=== PATIENT | male | born 1980 ===

== ENCOUNTER 2017-02-01 14:01 | Observation (INO) | payer OTHER ==
[2017-02-01 14:01] VITALS: BMI 22.8
--- NOTE | 2017-02-01 15:06 | ED PDOC ---
HPI: Psych/Substance Abuse Time Seen by Provider: 02/01/17 14:10 Chief Complaint (Nursing): Substance Abuse Chief Complaint (Provider): Substance Abuse History Per: Patient History/Exam Limitations: intoxication Onset/Duration Of Symptoms: Hrs (Since earlier today) Current Symptoms Are (Timing): Still Present Additional Complaint(s): Leonides is a 36 y/o male with a past medical history of polysubstance abuse who was brought to the emergency department by EMS and police after being found incoherent in the street today. Patient admits to using PCP and other drugs in the past, and may have taken drugs today. Last alcoholic beverage was yesterday. Patient denies having any medical complaints. . pt denies suicidal or homicidal ideation PMD: Unknown Past Medical History Reviewed: Historical Data, Nursing Documentation, Vital Signs - Medical History PMH: Asthma, Bipolar Disorder, Depression, Hypercholesterolemia (pt says he no longer takes meds for this), Schizophrenia Denies: Diabetes, Hepatitis, HIV, HTN, Seizures, Sexually Transmitted Disease Other PMH: Polysubstance abuse - Surgical History Other surgeries: Left hand surgery - Family History Family History: States: Unknown Family Hx - Social History Current smoker - smoking cessation education provided: Yes (3 cigarettes per day ) Alcohol: Occasional Drugs: Cannabis, Other (PCP) - Home Medications Home Medications: Ambulatory Orders Medication Instructions Recorded Albuterol HFA [Ventolin HFA 90 2 puff IH Q4 PRN #1 unit 06/29/16 mcg/actuation (8 g)] - Allergies Allergies/Adverse Reactions: Allergies Allergy/AdvReac Type Severity Reaction Status Date / Time No Known Allergies Allergy Verified 02/02/17 11:07 Review of Systems Review Of Systems: ROS cannot be obtained secondary to pt's inabilty to answer questions. Constitutional: Negative for: Other (all medical complaints) Neurological: Positive for: Confusion Physical Exam - Reviewed Nursing Documentation Reviewed: Yes Vital Signs Reviewed: Yes - Physical Exam Appears: Positive for: Non-toxic, No Acute Distress Head Exam: Positive for: ATRAUMATIC, NORMAL INSPECTION, NORMOCEPHALIC Skin: Positive for: Normal Color, Warm, Dry Eye Exam: Positive for: EOMI, Normal appearance, PERRL Neck: Positive for: Normal, Painless ROM, Supple Cardiovascular/Chest: Positive for: Regular Rate, Rhythm. Negative for: JVD, Murmur Respiratory: Positive for: Normal Breath Sounds. Negative for: Accessory Muscle Use, Respiratory Distress Gastrointestinal/Abdominal: Positive for: Normal Exam, Soft. Negative for: Tenderness Extremity: Positive for: Normal ROM. Negative for: Deformity Neurologic/Psych: Positive for: Alert, Oriented - Laboratory Results Result Diagrams: 02/01/17 14:40 02/01/17 14:40 Medical Decision Making Medical Decision Making: Time: 14:46 Initial Impression: rule out drug abuse, polysubstance abuse Initial Plan: --EKG --Urine drug screen --Alcohol serum --CBC --CMP --Salicylate --Acetaminophen --Admit to ED-Observation for substance abuse, goal to reach clinical sobriety Scribe Attestation: Documented by Tressa Gore, acting as a scribe for Barrie Amado MD Provider Scribe Attestation: All medical record entries made by the Scribe were at my direction and personally dictated by me. I have reviewed the chart and agree that the record accurately reflects my personal performance of the history, physical exam, medical decision making, and the department course for this patient. I have also personally directed, reviewed, and agree with the discharge instructions and disposition. ED OBSERVATION Date of observation admission: 02/01/17 Time of observation admission: 14:46 - Observation admission statement Patient is being placed in observation because:: Intoxication - Goals of Observation Goals of observation are:: To reach clinical sobriety - Progress Note Progress Note: 02/01/17 Time: 14:46 --Patient is resting comfortably. Vital signs stable. --Pending clinical sobriety Time: 15:13 --Requested 1:1 observation Time: 16:15 --Patient is resting comfortably. Vital signs stable. pt wants to go home, feels better 02/03/17 08:22 Disposition - Clinical Impression Clinical Impression: Polysubstance abuse - Patient ED Disposition Is Patient to be Admitted: No Counseled Patient/Family Regarding: Studies Performed, Diagnosis, Need For Followup - Disposition Disposition: Routine/Home Disposition Time: 18:50 Condition: IMPROVED
[2017-02-01 15:12] LABS: BASO % 0.8 % (0.0-2.0); EOS % 0.8 % (0.0-4.0); HEMOGLOBIN 13.9 g/dL (12.0-18.0); LYMPH % 34.7 % (20.0-40.0); MEAN CELL VOLUME 88.6 fl (80.0-94.0); MEAN CORPUSCULAR HEMOGLOBIN 30.4 pg (27.0-31.0); MEAN CORPUSCULAR HGB CONC 34.3 g/dL (33.0-37.0); MEAN PLATELET VOLUME 8.1 fl (7.2-11.7); MONO % 5.5 % (0.0-10.0); NEUT % 58.2 % (50.0-75.0); RBC 4.56 Mil/uL (4.40-5.90); WHITE BLOOD COUNT 7.1 K/uL (4.8-10.8)
[2017-02-01 15:13] LABS: BASO # 0.1 K/uL (0.0-0.2); EOS # 0.1 K/uL (0.0-0.7); LYMPH # 2.5 K/uL (1.0-4.3); MONO # 0.4 K/uL (0.0-0.8); NEUT # 4.1 K/uL (1.8-7.0); NRBC % 0.1 % (0.0-0.0)
[2017-02-01 15:22] LABS: SALICYLATE < 1.0 mg/dl
[2017-02-01 15:23] LABS: ALB/GLOB RATIO 1.4 (1.0-2.1); ALBUMIN 4.6 g/dL (3.5-5.0); ALT/SGPT 29 U/L (21-72); AST/SGOT 29 U/L (17-59); BLOOD UREA NITROGEN 15 mg/dl (9-20); CALCIUM 9.5 mg/dL (8.4-10.2); GFR AFRICAN-AMERICAN > 60; GFR NON-AFRICAN AMERICAN > 60
[2017-02-01 15:24] LABS: ACETAMINOPHEN < 10.0 ug/ml (10.0-30.0)
[2017-02-01 17:31] LABS: BARBITURATES, UR NEGATIVE (NEGATIVE); BENZODIAZEPINES, UR NEGATIVE (NEGATIVE); OPIATES, UR NEGATIVE (NEGATIVE); PHENCYCLIDINE, UR POSITIVE (NEGATIVE)
[2017-02-01 17:47] VITALS: BP 127/64; PULSE 72; RESP 18; TEMP 98.8; O2SAT 98
--- NOTE | 2017-02-03 00:06 | CARD ---
APPROVED REPORT EKG Measurement Heart [id number] <Conclusion> Normal sinus rhythm Normal ECG
== END 2017-02-01 18:09 | disposition home or self-care (01) ==
LOC: H.ER 14:01 → H.EROBSV 14:30
PROVIDERS: ADMIT Emergency Medicine; ATTEND Emergency Medicine
DX: F19.10 Other psychoactive substance abuse, uncomplicated (principal); E78.00 Pure hypercholesterolemia, unspecified; F31.9 Bipolar disorder, unspecified; J45.909 Unspecified asthma, uncomplicated; F32.9 Major depressive disorder, single episode, unspecified; F17.210 Nicotine dependence, cigarettes, uncomplicated
CPT/HCPCS: 80053; 85025; 93005; 99283; G0378; G0480

== ENCOUNTER 2017-02-01 19:03 | Emergency (ER) | payer OTHER ==
[2017-02-01 19:14] VITALS: TEMP 98
--- NOTE | 2017-02-01 19:58 | ED PDOC ---
HPI: Psych/Substance Abuse Time Seen by Provider: 02/01/17 19:12 Chief Complaint (Nursing): Substance Abuse Chief Complaint (Provider): Possible substance abuse ED Caveat: Intoxicated, Uncooperative History Per: EMS History/Exam Limitations: intoxication Additional Complaint(s): Leonides Smart is a 36 y/o male presenting to the ER on 02/01/2017 via [employer] for possible substance abuse. History obtained per EMS. Per EMS, patient was evaluated and discharged in this ED earlier today, but was brought back after exhibiting bizarre and aggressive behavior in the park. Upon arrival to the ED, patient was noted to have dilated pupils and was placed in four point restraints for the patient's and staff's safety. Patient, while in his room, became more aggravated as he began to yell and shout. Rest of HPI/ROS is limited due to the patient's clinical condition. Past Medical History Reviewed: Historical Data, Nursing Documentation, Vital Signs Vital Signs: Last Vital Signs Temp 98 F 02/01/17 19:11 Pulse 90 02/01/17 19:11 Resp 18 02/01/17 19:11 BP 125/80 02/01/17 19:11 Pulse Ox 97 02/01/17 19:11 - Medical History PMH: Asthma, Bipolar Disorder, Depression, Hypercholesterolemia (pt says he no longer takes meds for this), Schizophrenia Denies: Diabetes, Hepatitis, HIV, HTN, Seizures, Sexually Transmitted Disease - Family History Family History: States: Unknown Family Hx - Social History Current smoker - smoking cessation education provided: Yes Alcohol: Occasional Drugs: Cannabis - Home Medications Home Medications: Ambulatory Orders Medication Instructions Recorded Albuterol HFA [Ventolin HFA 90 2 puff IH Q4 PRN #1 unit 06/29/16 mcg/actuation (8 g)] - Allergies Allergies/Adverse Reactions: Allergies Allergy/AdvReac Type Severity Reaction Status Date / Time No Known Allergies Allergy Verified 06/13/16 16:25 Review of Systems Review Of Systems: ROS cannot be obtained secondary to pt's inabilty to answer questions. Physical Exam - Reviewed Nursing Documentation Reviewed: Yes Vital Signs Reviewed: Yes - Physical Exam Appears: Positive for: Non-toxic, No Acute Distress Head Exam: Positive for: ATRAUMATIC, NORMOCEPHALIC Skin: Positive for: Normal Color. Negative for: Rash Eye Exam: Positive for: Normal appearance Neck: Positive for: Normal, Painless ROM, Supple Cardiovascular/Chest: Positive for: Regular Rate, Rhythm. Negative for: Murmur Respiratory: Positive for: Normal Breath Sounds. Negative for: Respiratory Distress Gastrointestinal/Abdominal: Positive for: Normal Exam, Soft. Negative for: Tenderness Extremity: Positive for: Normal ROM. Negative for: Deformity, Swelling Neurologic/Psych: Positive for: Alert, Oriented. Negative for: Motor/Sensory Deficits - ECG O2 Sat by Pulse Oximetry: 97 Medical Decision Making Medical Decision Makin:12 Initial Impression- Substance abuse Pt was sedated with 2 mg Ativan for most probable drug induced psychosis. Pt is suspected to be under the influence of PCP. Pt will be placed on 1:1 observation. See ED OBS for further updates. PT stable with stable gait normal speech pattern. Pt d/c home Documented by Marco Antonio Puente, acting as a scribe for Noemi Tapia PA-C All medical record entries made by the Scribe were at my direction and personally dictated by me. I have reviewed the chart and agree that the record accurately reflects my personal performance of the history, physical exam, medical decision making, and the department course for this patient. I have also personally directed, reviewed, and agree with the discharge instructions and disposition. ED OBSERVATION Discharge: Yes Date of observation admission: 02/01/17 Time of observation admission: 19:13 - Observation admission statement Patient is being placed in observation because:: Pt is clinically intoxicated - Goals of Observation Goals of observation are:: Clinical sobriety, re-evaluation, and final disposition. - Progress Note Progress Note: 02/01/17 21:06 pt stable, more alert and oriented. 02/01/17 21:29 pt removed from restraints 02/01/17 22:04 pt stable for d.c at this time. Disposition - Clinical Impression Clinical Impression: Substance abuse, PCP (phencyclidine) abuse - Patient ED Disposition Is Patient to be Admitted: No Counseled Patient/Family Regarding: Diagnosis, Need For Followup - Disposition Disposition: Routine/Home Disposition Time: 22:05 Condition: STABLE Instructions: Polysubstance Abuse (ED)
[2017-02-01 21:26] VITALS: RESP 18
[2017-02-01 22:17] VITALS: BP 122/81; PULSE 87; O2SAT 100
--- NOTE | 2017-02-02 19:03 | CARD ---
APPROVED REPORT EKG Measurement Heart [id number] <Conclusion> Normal sinus rhythm Normal ECG
== END 2017-02-01 22:17 | disposition home or self-care (01) ==
LOC: H.ER 19:03
DX: F16.10 Hallucinogen abuse, uncomplicated (principal); F10.10 Alcohol abuse, uncomplicated

== ENCOUNTER 2017-02-02 10:40 | Emergency (ER) | payer OTHER ==
--- NOTE | 2017-02-02 10:55 | ED PDOC ---
HPI: Psych/Substance Abuse Time Seen by Provider: 02/02/17 10:46 History Per: Patient Additional Complaint(s): 36 year old male presents to ED with possible substance abuse and a past medical history of substance abuse, schizophrenia, bipolar disorder, and depression. Patient forced his way through the ambulance bay door while breaking the window before running into the triage area appearing very confused. Patient did not answer any questions, and security restrained him in the trauma room. Patient was then given 4 point restraints and 2 & 5 for relief of acute agitation. Patient admits to PCP use and is unable to answer any other questions. PCP: Unable to obtain Past Medical History Vital Signs: Last Vital Signs Temp 98.8 F 02/02/17 10:42 Pulse 89 02/02/17 10:42 Resp 18 02/02/17 10:42 BP 133/81 02/02/17 10:42 Pulse Ox 95 02/02/17 10:42 - Medical History PMH: Asthma, Bipolar Disorder, Depression, Hypercholesterolemia (pt says he no longer takes meds for this), Schizophrenia Denies: Diabetes, Hepatitis, HIV, HTN, Seizures, Sexually Transmitted Disease - Family History Family History: States: Unknown Family Hx - Home Medications Home Medications: Ambulatory Orders Medication Instructions Recorded Albuterol HFA [Ventolin HFA 90 2 puff IH Q4 PRN #1 unit 06/29/16 mcg/actuation (8 g)] - Allergies Allergies/Adverse Reactions: Allergies Allergy/AdvReac Type Severity Reaction Status Date / Time No Known Allergies Allergy Verified 02/02/17 11:07 - Laboratory Results Result Diagrams: 02/02/17 11:29 02/02/17 11:29 - ECG O2 Sat by Pulse Oximetry: 95 Medical Decision Making Medical Decision Making: Pt attempting to leave bed and unable to understand risks of fall or potential for traumatic brain injury. Medicated to relieve drug-induced psychosis.
[2017-02-02 11:43] LABS: BASO # 0.1 K/uL (0.0-0.2); BASO % 0.5 % (0.0-2.0); EOS % 0.2 % (0.0-4.0); LYMPH # 3.4 K/uL (1.0-4.3); LYMPH % 28.3 % (20.0-40.0); MEAN CELL VOLUME 88.7 fl (80.0-94.0); MEAN CORPUSCULAR HEMOGLOBIN 29.3 pg (27.0-31.0); MEAN CORPUSCULAR HGB CONC 33.1 g/dL (33.0-37.0); MONO # 0.8 K/uL (0.0-0.8); MONO % 6.6 % (0.0-10.0); NEUT # 7.7 K/uL (1.8-7.0); NEUT % 64.4 % (50.0-75.0); NRBC % 0.1 % (0.0-0.0); RBC 4.77 Mil/uL (4.40-5.90); RED CELL DISTRIBUTION WIDTH 13.9 % (11.5-14.5); WHITE BLOOD COUNT 11.9 K/uL (4.8-10.8)
[2017-02-02 11:52] LABS: ALB/GLOB RATIO 1.4 (1.0-2.1); ALBUMIN 5.1 g/dL (3.5-5.0); ALT/SGPT 42 U/L (21-72); AST/SGOT 66 U/L (17-59); BLOOD UREA NITROGEN 15 mg/dl (9-20); CALCIUM 9.4 mg/dL (8.4-10.2); GFR AFRICAN-AMERICAN > 60; GFR NON-AFRICAN AMERICAN > 60
[2017-02-02] MEDS ORDERED: Sodium Chloride 0.9% 1,000 ML IV STA ×2 (12:53)
[2017-02-02 14:16] VITALS: BP 119/71; PULSE 84; RESP 16; TEMP 98.8; O2SAT 99
== END 2017-02-02 14:16 | disposition home or self-care (01) ==
LOC: H.ER 10:40
DX: F19.10 Other psychoactive substance abuse, uncomplicated (principal); F19.951 Other psychoactive substance use, unspecified with psychoactive substance-induced psychotic disorder with hallucinations

== ENCOUNTER 2017-02-03 13:55 | Emergency (ER) | payer OTHER ==
[2017-02-03 14:02] VITALS: TEMP 101
--- NOTE | 2017-02-03 14:12 | ED PDOC ---
HPI: Psych/Substance Abuse Time Seen by Provider: 02/03/17 14:11 Chief Complaint (Nursing): Substance Abuse Chief Complaint (Provider): Substance abuse History Per: Patient Additional Complaint(s): Leonides Smart is a 36 y/o male presenting to the ER on 02/03/2017 via [employer] for possible substance abuse. History obtained per EMS. Per EMS, patient was evaluated and discharged from the ED 2 x yesterday for the same. Presents again after exhibiting bizarre and aggressive behavior in the park. Upon arrival to the ED, patient was noted to have dilated pupils and was placed in four point restraints for the patient's and staff's safety. Patient, while in his room, became more aggravated as he began to yell and shout. Rest of HPI/ROS is limited due to the patient's clinical condition. Pt has a history of PCP PCP: Unable to obtain Past Medical History Reviewed: Historical Data, Nursing Documentation, Vital Signs Vital Signs: Last Vital Signs Temp 101.0 F H 02/03/17 14:00 Pulse 118 H 02/03/17 14:00 Resp 16 02/03/17 14:00 BP 135/88 02/03/17 14:00 Pulse Ox 99 02/03/17 14:00 - Medical History PMH: Asthma, Bipolar Disorder, Depression, Hypercholesterolemia (pt says he no longer takes meds for this), Schizophrenia Denies: Diabetes, Hepatitis, HIV, HTN, Seizures, Sexually Transmitted Disease - Surgical History Surgical History: No Surg Hx - Family History Family History: States: Unknown Family Hx - Living Arrangements Living Arrangements: With Family - Social History Current smoker - smoking cessation education provided: No - Home Medications Home Medications: Ambulatory Orders Medication Instructions Recorded Albuterol HFA [Ventolin HFA 90 2 puff IH Q4 PRN #1 unit 06/29/16 mcg/actuation (8 g)] - Allergies Allergies/Adverse Reactions: Allergies Allergy/AdvReac Type Severity Reaction Status Date / Time No Known Allergies Allergy Verified 02/03/17 14:00 Review of Systems Review Of Systems: ROS cannot be obtained secondary to pt's inabilty to answer questions. Physical Exam - Reviewed Nursing Documentation Reviewed: Yes Vital Signs Reviewed: Yes - Physical Exam Appears: Positive for: Non-toxic, No Acute Distress Head Exam: Positive for: ATRAUMATIC, NORMAL INSPECTION, NORMOCEPHALIC Skin: Positive for: Normal Color, Warm, DRY Eye Exam: Positive for: EOMI, Normal appearance, PERRL ENT: Positive for: Normal ENT Inspection Neck: Positive for: Normal, Painless ROM Cardiovascular/Chest: Positive for: Regular Rate, Rhythm Respiratory: Positive for: CNT, Normal Breath Sounds Gastrointestinal/Abdominal: Positive for: Normal Exam, Bowel Sounds, Soft Back: Positive for: Normal Inspection Extremity: Positive for: Normal ROM Neurologic/Psych: Positive for: Alert, Oriented - Laboratory Results Result Diagrams: 02/03/17 14:51 02/03/17 14:51 - ECG O2 Sat by Pulse Oximetry: 99 Medical Decision Making Medical Decision Making: Pt placed in 4 point restraints and on 1:1 for his safety. Medicated with Ativan IM to relieve him of his agitations. Vitals improving on drop wire aligner P: 102 BP: 128/88 Repeat temp: 99.9 F Labs resulted and reviewed. Urine specimen not provided. Pt calm and cooperative on re-eval. Taken off restraints and able to ambulate with steady gait. stable for discharge at this time. pt admits to using PCP today and smoking marijuana Disposition - Clinical Impression Clinical Impression: PCP (phencyclidine) abuse - Patient ED Disposition Is Patient to be Admitted: No - Disposition Disposition: Routine/Home Disposition Time: 17:38 Condition: GOOD Instructions: Polysubstance Abuse (ED) - POA Present On Arrival: None
[2017-02-03 15:06] LABS: BASO # 0.1 K/uL (0.0-0.2); BASO % 0.7 % (0.0-2.0); EOS % 0.1 % (0.0-4.0); HEMATOCRIT 44.3 % (35.0-51.0); LYMPH # 2.1 K/uL (1.0-4.3); LYMPH % 19.4 % (20.0-40.0); MEAN CELL VOLUME 88.8 fl (80.0-94.0); MEAN CORPUSCULAR HEMOGLOBIN 29.9 pg (27.0-31.0); MEAN CORPUSCULAR HGB CONC 33.6 g/dL (33.0-37.0); MEAN PLATELET VOLUME 7.7 fl (7.2-11.7); MONO # 0.6 K/uL (0.0-0.8); MONO % 5.1 % (0.0-10.0); NEUT # 8.3 K/uL (1.8-7.0); NEUT % 74.7 % (50.0-75.0); RED CELL DISTRIBUTION WIDTH 13.9 % (11.5-14.5); WHITE BLOOD COUNT 11.1 K/uL (4.8-10.8)
[2017-02-03 15:15] LABS: ALB/GLOB RATIO 1.5 (1.0-2.1); ALCOHOL SERUM < 10 mg/dl (0-10); ALKALINE PHOSPHATASE 64 U/L (38-126); ALT/SGPT 47 U/L (21-72); AST/SGOT 53 U/L (17-59); BLOOD UREA NITROGEN 16 mg/dl (9-20); CALCIUM 9.8 mg/dL (8.4-10.2); CARBON DIOXIDE 25 mmol/L (22-30); GFR AFRICAN-AMERICAN > 60; GLUCOSE,RANDOM 139 mg/dL (75-110); POTASSIUM 3.8 MMOL/L (3.6-5.0); SODIUM 143 mmol/l (132-148); TOTAL PROTEIN 8.4 G/DL (6.3-8.2)
[2017-02-03 15:17] LABS: CHLORIDE 106 mmol/L (98-107)
--- NOTE | 2017-02-03 17:19 | CARD ---
APPROVED REPORT EKG Measurement Heart [id number] <Conclusion> Normal sinus rhythm with sinus arrhythmia Normal ECG
[2017-02-03 17:56] VITALS: BP 143/76; PULSE 95; RESP 18; O2SAT 98
== END 2017-02-03 17:17 | disposition home or self-care (01) ==
LOC: H.ER 13:55
DX: F16.10 Hallucinogen abuse, uncomplicated (principal); F12.90 Cannabis use, unspecified, uncomplicated; F31.9 Bipolar disorder, unspecified; E78.00 Pure hypercholesterolemia, unspecified; J45.909 Unspecified asthma, uncomplicated

== ENCOUNTER 2017-02-03 22:42 | Observation (INO) | payer OTHER ==
[2017-02-03] MEDS ORDERED: Sodium Chloride 0.9% 1,000 ML IV STA ×2 (22:56→23:52)
[2017-02-03 23:26] LABS: BASO # 0.1 K/uL (0.0-0.2); BASO % 0.9 % (0.0-2.0); EOS % 0.1 % (0.0-4.0); HEMOGLOBIN 14.2 g/dL (12.0-18.0); LYMPH # 2.7 K/uL (1.0-4.3); LYMPH % 21.9 % (20.0-40.0); MEAN CELL VOLUME 89.5 fl (80.0-94.0); MEAN CORPUSCULAR HEMOGLOBIN 29.8 pg (27.0-31.0); MEAN CORPUSCULAR HGB CONC 33.3 g/dL (33.0-37.0); MEAN PLATELET VOLUME 7.5 fl (7.2-11.7); MONO # 0.8 K/uL (0.0-0.8); MONO % 6.3 % (0.0-10.0); NEUT # 8.7 K/uL (1.8-7.0); NEUT % 70.8 % (50.0-75.0); RBC 4.78 Mil/uL (4.40-5.90); WHITE BLOOD COUNT 12.2 K/uL (4.8-10.8)
[2017-02-03 23:39] LABS: ALBUMIN 5.2 g/dL (3.5-5.0); ALT/SGPT 43 U/L (21-72); AST/SGOT 63 U/L (17-59); BLOOD UREA NITROGEN 17 mg/dl (9-20); CALCIUM 9.5 mg/dL (8.4-10.2); GFR AFRICAN-AMERICAN > 60; GFR NON-AFRICAN AMERICAN 58; MAGNESIUM 2.3 MG/DL (1.6-2.3)
--- NOTE | 2017-02-03 23:41 | ED PDOC ---
HPI: Psych/Substance Abuse Time Seen by Provider: 02/03/17 22:51 Chief Complaint (Nursing): Substance Abuse Chief Complaint (Provider): Substance abuse ED Caveat: Intoxicated, Uncooperative History Per: EMS History/Exam Limitations: intoxication Current Symptoms Are (Timing): Still Present Additional Complaint(s): The patient is a 36yo male, brought to the ED for evaluation s/p patient was found outside intoxicated. Patient has a known history of PCP abuse and has been to this facility multiple times for the same complaint. History per patient is unavailable due to his intoxicated state. Per EMS, patient was given narcan in the field after which he woke up and was combative and screaming. No other complaints obtainable. Past Medical History Reviewed: Historical Data, Nursing Documentation, Vital Signs Vital Signs: Last Vital Signs Temp 98.1 F 02/03/17 23:21 Pulse 130 H 02/03/17 22:50 Resp 16 02/03/17 22:50 BP 116/74 02/03/17 22:50 Pulse Ox 100 02/03/17 22:50 - Medical History PMH: Asthma, Bipolar Disorder, Depression, Hypercholesterolemia (pt says he no longer takes meds for this), Schizophrenia Denies: Diabetes, Hepatitis, HIV, HTN, Seizures, Sexually Transmitted Disease - Family History Family History: States: Unknown Family Hx - Home Medications Home Medications: Ambulatory Orders Medication Instructions Recorded Albuterol HFA [Ventolin HFA 90 2 puff IH Q4 PRN #1 unit 06/29/16 mcg/actuation (8 g)] - Allergies Allergies/Adverse Reactions: Allergies Allergy/AdvReac Type Severity Reaction Status Date / Time No Known Allergies Allergy Verified 02/03/17 22:50 Review of Systems Review Of Systems: ROS cannot be obtained secondary to pt's inabilty to answer questions. Psych: Positive for: Other (substance abuse) Physical Exam - Reviewed Nursing Documentation Reviewed: Yes Vital Signs Reviewed: Yes - Physical Exam Appears: Positive for: No Acute Distress Head Exam: Positive for: ATRAUMATIC, NORMAL INSPECTION, NORMOCEPHALIC Skin: Positive for: Normal Color, Warm, Diaphoresis. Negative for: Rash Eye Exam: Positive for: PERRL ENT: Positive for: Other (tacky mucus membranes) Neck: Positive for: Normal Cardiovascular/Chest: Positive for: Regular Rate, Rhythm, Tachycardia. Negative for: Murmur Respiratory: Negative for: Respiratory Distress Neurologic/Psych: Positive for: Alert (intermittently alert, patient obtunded. ) . Negative for: Oriented, Motor/Sensory Deficits - Laboratory Results Result Diagrams: 02/03/17 23:23 02/03/17 23:23 - ECG O2 Sat by Pulse Oximetry: 100 (RA) Pulse Ox Interpretation: Normal Medical Decision Making Medical Decision Making: Time: 2250 Impression: Drug induced psychosis Plan: * Patient placed under restraints due to possibility of harm to self and others * ED Observation * Labs * Haldol 5mg IM * Ativan 2mg IM * IV Fluids Scribe Attestation: Documented by Loli Elizabeth, acting as a scribe for Angelica Mosqueda MD. Provider Scribe Attestation: All medical record entries made by the Scribe were at my direction and personally dictated by me. I have reviewed the chart and agree that the record accurately reflects my personal performance of the history, physical exam, medical decision making, and the department course for this patient. I have also personally directed, reviewed, and agree with the discharge instructions and disposition. ED OBSERVATION Date of observation admission: 02/03/17 Time of observation admission: 23:02 - Observation admission statement Patient is being placed in observation because:: Patient currently intoxicated and obtunded. - Goals of Observation Goals of observation are:: Patient awaiting ED workup, re-evaluation and disposition. - Progress Note Progress Note: 02/04/17 00:00 Patient to be transferred over to Dr. Aleman pending clinical sobriety and disposition. Disposition - Clinical Impression Clinical Impression: PCP (phencyclidine) abuse - Patient ED Disposition Is Patient to be Admitted: Transfer of Care - Disposition Disposition: Transfer of Care Disposition Time: 00:00 Condition: FAIR
[2017-02-03 23:48] LABS: ALB/GLOB RATIO 1.6 (1.0-2.1)
[2017-02-03] MEDS ORDERED: Dextrose 5%/0.9% NS 1,000 ML IV SCH (23:52)
[2017-02-04] MEDS ORDERED: Potassium Chloride 20 mEq ER Tab PO ONE ×2 (00:12→07:28)
--- NOTE | 2017-02-04 00:18 | ED PDOC ---
- Laboratory Results Result Diagrams: 02/03/17 23:23 02/03/17 23:23 - ECG O2 Sat by Pulse Oximetry: 96 Medical Decision Making Medical Decision Making: Receiving Sign Out: Patient signed out to me by Dr. Mosqueda at 00:00 pending clinical sobriety. Scribe Attestation: Documented by Loli Elizabeth, acting as a scribe for Desmond Aleman MD. Provider Scribe Attestation: All medical record entries made by the Scribe were at my direction and personally dictated by me. I have reviewed the chart and agree that the record accurately reflects my personal performance of the history, physical exam, medical decision making, and the department course for this patient. I have also personally directed, reviewed, and agree with the discharge instructions and disposition. Disposition Doctor Will See Patient In The: Office Counseled Patient/Family Regarding: Studies Performed, Diagnosis - Clinical Impression Clinical Impression: PCP (phencyclidine) abuse - POA Present On Arrival: None - Disposition Disposition: Transfer of Care Disposition Time: 07:00 Condition: FAIR Patient Signed Over To: Smitha Frazier Handoff Comments: Pending clinical sobriety ED OBSERVATION Date of observation admission: 02/03/17 Time of observation admission: 23:02 - Progress Note Progress Note: 02/04/17 02:11 Patient resting in room, vitals stable. 02/04/17 04:04 Patient asleep, no acute distress. 02/04/17 06:11 Patient resting, no acute distress. 02/04/17 07:00 Patient to be signed out to Dr. Frazier pending clinical sobriety.
[2017-02-04 08:39] LABS: BENZODIAZEPINES, UR NEGATIVE (NEGATIVE); OPIATES, UR NEGATIVE (NEGATIVE)
[2017-02-04 08:56] LABS: BARBITURATES, UR NEGATIVE (NEGATIVE); PHENCYCLIDINE, UR POSITIVE (NEGATIVE)
--- NOTE | 2017-02-04 12:55 | ED PDOC ---
- Laboratory Results Result Diagrams: 02/03/17 23:23 02/03/17 23:23 - ECG O2 Sat by Pulse Oximetry: 97 - Progress ED Course And Treament: 7AM Patient was signed out to me as pending sobriety 8:30 Resting comfortably on 1:1 10:30 Resting comfortably on 1:1 12:30 Resting comfortably on 1:1 12:54AM Patient is now AAOx3. He is ambulating around the ED without issue and tolerating po. He has no somatic complaints. Will dc Disposition - Clinical Impression Clinical Impression: PCP (phencyclidine) abuse - POA Present On Arrival: None - Disposition Disposition: Routine/Home Disposition Time: 12:55 Condition: FAIR
[2017-02-04 13:22] VITALS: BP 108/60; PULSE 91; RESP 13; TEMP 97.6
[2017-02-06 17:33] VITALS: O2SAT 100
== END 2017-02-04 12:55 | disposition home or self-care (01) ==
LOC: H.ER 22:42 → H.EROBSV 23:02
PROVIDERS: ADMIT Emergency Medicine; ATTEND Emergency Medicine
DX: F19.959 Other psychoactive substance use, unspecified with psychoactive substance-induced psychotic disorder, unspecified (principal); F16.10 Hallucinogen abuse, uncomplicated; E78.00 Pure hypercholesterolemia, unspecified; F31.9 Bipolar disorder, unspecified; J45.909 Unspecified asthma, uncomplicated; F32.9 Major depressive disorder, single episode, unspecified

== ENCOUNTER 2017-03-06 12:07 | Emergency (ER) | payer OTHER ==
[2017-03-06 12:14] VITALS: RESP 18; TEMP 97.6; O2SAT 98
--- NOTE | 2017-03-06 13:35 | ED PDOC ---
HPI: Psych/Substance Abuse Time Seen by Provider: 03/06/17 12:18 Chief Complaint (Nursing): Substance Abuse Chief Complaint (Provider): Brought in by EMS for evaluation History Per: Patient History/Exam Limitations: no limitations Onset/Duration Of Symptoms: Hrs Current Symptoms Are (Timing): Still Present Additional Complaint(s): Pt reports using PCP today. Pt denies complaint. PT brought by EMS after police called them reporting patient with unsteady gait. Past Medical History Reviewed: Historical Data, Nursing Documentation, Vital Signs Vital Signs: Last Vital Signs Temp 97.6 F 03/06/17 12:10 Pulse 97 H 03/06/17 12:10 Resp 18 03/06/17 12:10 BP 127/55 L 03/06/17 12:10 Pulse Ox 98 03/06/17 12:10 - Medical History PMH: Asthma, Bipolar Disorder, Depression, Hypercholesterolemia (pt says he no longer takes meds for this), Schizophrenia Denies: Diabetes, Hepatitis, HIV, HTN, Seizures, Sexually Transmitted Disease - Surgical History Surgical History: No Surg Hx - Family History Family History: States: Unknown Family Hx - Living Arrangements Living Arrangements: With Family (, 2 kids) - Social History Current smoker - smoking cessation education provided: Yes Alcohol: Occasional Drugs: Cannabis, Other (PCP) - Home Medications Home Medications: Ambulatory Orders Medication Instructions Recorded Albuterol HFA [Ventolin HFA 90 2 puff IH Q4 PRN #1 unit 06/29/16 mcg/actuation (8 g)] - Allergies Allergies/Adverse Reactions: Allergies Allergy/AdvReac Type Severity Reaction Status Date / Time No Known Allergies Allergy Verified 03/06/17 12:09 Review of Systems ROS Statement: Except As Marked, All Systems Reviewed And Found Negative Constitutional: Negative for: Fever, Chills, Weakness, Malaise Physical Exam - Reviewed Nursing Documentation Reviewed: Yes Vital Signs Reviewed: Yes - Physical Exam Appears: Positive for: Well, Non-toxic, No Acute Distress Head Exam: Positive for: ATRAUMATIC, NORMAL INSPECTION, NORMOCEPHALIC Skin: Positive for: Normal Color, Warm, DRY Eye Exam: Positive for: Normal appearance, PERRL ENT: Positive for: Normal ENT Inspection Neck: Positive for: Normal, Painless ROM Cardiovascular/Chest: Positive for: Regular Rate, Rhythm Respiratory: Positive for: CNT, Normal Breath Sounds Gastrointestinal/Abdominal: Positive for: Normal Exam, Bowel Sounds, Soft Back: Positive for: Normal Inspection Extremity: Positive for: Normal ROM Neurologic/Psych: Positive for: Alert, Oriented - ECG O2 Sat by Pulse Oximetry: 98 Medical Decision Making Medical Decision Making: Pt ate in ER and is cooperative. 1335 - Clear speech and steady gait. Disposition - Clinical Impression Clinical Impression: Polysubstance abuse - Patient ED Disposition Is Patient to be Admitted: No - Disposition Disposition Time: 13:36 Condition: GOOD Additional Instructions: Let before getting discharge papers.
[2017-03-06 14:42] VITALS: BP 128/78; PULSE 78
== END 2017-03-06 14:42 | disposition home or self-care (01) ==
LOC: H.ER 12:07
DX: F19.10 Other psychoactive substance abuse, uncomplicated (principal)

== ENCOUNTER 2017-03-23 07:19 | Emergency (ER) | payer OTHER ==
[2017-03-23 07:22] VITALS: BMI 27.0
[2017-03-23 07:23] VITALS: BP 127/80; PULSE 98; RESP 17; TEMP 97.5; O2SAT 99
--- NOTE | 2017-03-23 08:39 | ED PDOC ---
HPI: Psych/Substance Abuse Time Seen by Provider: 03/23/17 08:29 Chief Complaint (Nursing): Substance Abuse Chief Complaint (Provider): Substance abuse History Per: Patient History/Exam Limitations: no limitations Onset/Duration Of Symptoms: Hrs (prior to arrival) Suicide/Self Injury Attempted (Context): None Associated Symptoms: Agitation Additional Complaint(s): Leonides Smart is a 36 year old male, with a past history of chronic substance abuse, who was brought to the emergency department by the police and EMS for sleeping on the sidewalk and purposely acting erratically. Patient admits to doing PCP prior to arrival and was kicked out of his house, and has been admitted several times in the past for substance abuse. Patient has no psych issues and denies any homicidal or suicidal ideation, and hallucinations. No further medical complaints. PMD: None provided. Past Medical History Reviewed: Historical Data, Nursing Documentation, Vital Signs Vital Signs: Last Vital Signs Temp 97.5 F L 03/23/17 07:22 Pulse 98 H 03/23/17 07:22 Resp 17 03/23/17 07:22 BP 127/80 03/23/17 07:22 Pulse Ox 99 03/23/17 07:22 - Medical History PMH: Asthma, Bipolar Disorder, Depression, Hypercholesterolemia (pt says he no longer takes meds for this), Schizophrenia Denies: Diabetes, Hepatitis, HIV, HTN, Seizures, Sexually Transmitted Disease - Family History Family History: States: Unknown Family Hx - Social History Current smoker - smoking cessation education provided: Yes (Light smoker <10 cigarettes daily) Alcohol: None Drugs: Cannabis, Other (pcp) - Home Medications Home Medications: Ambulatory Orders Medication Instructions Recorded Albuterol HFA [Ventolin HFA 90 2 puff IH Q4 PRN #1 unit 06/29/16 mcg/actuation (8 g)] - Allergies Allergies/Adverse Reactions: Allergies Allergy/AdvReac Type Severity Reaction Status Date / Time No Known Allergies Allergy Verified 03/23/17 07:27 Review of Systems ROS Statement: Except As Marked, All Systems Reviewed And Found Negative Constitutional: Negative for: Other (denies any pain) Psych: Negative for: Anxiety, Depression, Psychosis, Suicidal ideation (& homicidal ideation), Other (hallucinations) Physical Exam - Reviewed Nursing Documentation Reviewed: Yes Vital Signs Reviewed: Yes - Physical Exam Appears: Positive for: Well, Non-toxic, No Acute Distress Head Exam: Positive for: ATRAUMATIC, NORMAL INSPECTION, NORMOCEPHALIC Skin: Positive for: Normal Color, Warm, Dry Eye Exam: Positive for: EOMI, Normal appearance, PERRL ENT: Positive for: Normal ENT Inspection Neck: Positive for: Normal, Painless ROM, Supple Cardiovascular/Chest: Positive for: Regular Rate, Rhythm. Negative for: Murmur Respiratory: Positive for: Normal Breath Sounds. Negative for: Respiratory Distress Gastrointestinal/Abdominal: Positive for: Normal Exam, Bowel Sounds, Soft Back: Positive for: Normal Inspection Extremity: Positive for: Normal ROM. Negative for: Pedal Edema, Deformity Neurologic/Psych: Positive for: Alert (x3), cloak room attendant II-XII (nml), Oriented (x3), Mood/Affect (calm), Cerebellar Tests (normal), Gait (normal). Negative for: Motor/Sensory Deficits (normal sensation strenghts ), Aphasia, Facial Droop - ECG O2 Sat by Pulse Oximetry: 99 (RA) Pulse Ox Interpretation: Normal - Progress ED Course And Treament: pt denies any complaints. pt leaves ambulatory and with steady gait. Re-evaluation Time: 08:15 Condition: Improved Medical Decision Making Medical Decision Making: Initial Impression: 36 y/o with substance abuse Initial Plan: 814 -Upon provider reevaluation patient is feeling better, is medically stable, and requires no further treatment in the ED at this time. Patient will be discharged. Scribe Attestation: Documented by Keven Up, acting as a scribe for Dayron Amos MD. Provider Scribe Attestation: All medical record entries made by the Scribe were at my direction and personally dictated by me. I have reviewed the chart and agree that the record accurately reflects my personal performance of the history, physical exam, medical decision making, and the department course for this patient. I have also personally directed, reviewed, and agree with the discharge instructions and disposition. Disposition - Clinical Impression Clinical Impression: Drug abuse Counseled Patient/Family Regarding: Studies Performed, Diagnosis, Need For Followup - Disposition Referrals: [facility] [Outside] (2 to 3 days) Disposition: Routine/Home Disposition Time: 08:30 Condition: GOOD Instructions: Polysubstance Abuse (ED) Forms: [employer] (Slovak)
== END 2017-03-23 09:01 | disposition home or self-care (01) ==
LOC: H.ER 07:19
DX: F19.10 Other psychoactive substance abuse, uncomplicated (principal); F31.9 Bipolar disorder, unspecified

== ENCOUNTER 2017-07-02 21:56 | Emergency (ER) | payer SELFPAY ==
[2017-07-02 21:57] VITALS: BMI 27.0
[2017-07-02 22:22] VITALS: RESP 16; TEMP 98.4; O2SAT 97
--- NOTE | 2017-07-02 22:43 | ED PDOC ---
HPI: General Adult Time Seen by Provider: 07/02/17 22:13 Chief Complaint (Nursing): GI Problem History Per: Patient Additional Complaint(s): Pt. states for the past 2-3 days he's felt "lightheaded and weak." Reports that he "scraped" his head but is uncertain as to how. Admits to using marijuana and PCP. States the last time he used any drugs was 4 days ago. Also reports having 2 episodes of vomiting today. Denies chest pain, abdominal pain, diarrhea, fever , neck pain. Past Medical History Reviewed: Historical Data, Nursing Documentation, Vital Signs Vital Signs: Last Vital Signs Temp 98.4 F 07/02/17 22:15 Pulse 80 07/03/17 05:35 Resp 16 07/03/17 05:35 BP 130/74 07/03/17 05:35 Pulse Ox 97 07/03/17 05:31 - Medical History PMH: Asthma, Bipolar Disorder, Depression, Hypercholesterolemia (pt says he no longer takes meds for this), Schizophrenia Denies: Diabetes, Hepatitis, HIV, HTN, Seizures, Sexually Transmitted Disease - Family History Family History: States: No Known Family Hx - Home Medications Home Medications: Ambulatory Orders Medication Instructions Recorded Albuterol HFA [Ventolin HFA 90 2 puff IH Q4 PRN #1 unit 06/29/16 mcg/actuation (8 g)] - Allergies Allergies/Adverse Reactions: Allergies Allergy/AdvReac Type Severity Reaction Status Date / Time No Known Allergies Allergy Verified 03/23/17 07:27 Review of Systems ROS Statement: Except As Marked, All Systems Reviewed And Found Negative Gastrointestinal: Positive for: Vomiting Neurological: Positive for: Headache Physical Exam - Reviewed Nursing Documentation Reviewed: Yes Vital Signs Reviewed: Yes - Physical Exam Appears: Positive for: Well, Non-toxic, No Acute Distress Head Exam: Negative for: ATRAUMATIC (superficial abrasion to forehead), NORMAL INSPECTION, NORMOCEPHALIC Skin: Positive for: Normal Color, Warm. Negative for: Rash Eye Exam: Positive for: EOMI, Normal appearance, PERRL ENT: Positive for: Normal ENT Inspection, TM Is/Are (no hemotympanum b/l) Neck: Positive for: Normal, Painless ROM Cardiovascular/Chest: Positive for: Regular Rate, Rhythm, Chest Non Tender Respiratory: Positive for: CNT, Normal Breath Sounds Gastrointestinal/Abdominal: Positive for: Normal Exam, Bowel Sounds, Soft, Other (no ecchymosis to abdomen). Negative for: Tenderness Back: Positive for: Normal Inspection Extremity: Positive for: Normal ROM Neurologic/Psych: Positive for: Alert, Oriented, Gait (steady), Other (slow to answer questions). Negative for: Aphasia, Facial Droop - ECG O2 Sat by Pulse Oximetry: 97 - Progress ED Course And Treament: CT head w/o contrast: negative. 0000 Sleeping comfortably. Arousable to tactile stimuli but still somnolent. 0220 No distress. 0530 Still somnolent. Arousable only to non-painful tactile stimuli. Medical Decision Making Medical Decision Making: Time: 05:53 Initial Impression: 25 y/o male for suicidal ideation in setting of alcohol/ substance abuse Plan: Alcohol serum CMP Drug Screen Crisis evaluation Urine dipstick CBC w/ diff 1:1 observation for suicide precaution Accucheck Scribe Attestation: Documented by Emory Clark acting as a scribe for Jaime Lechuga MD. Scribe Attestation: All medical record entries made by the Scribe were at my direction and personally dictated by me. I have reviewed the chart and agree that the record accurately reflects my personal performance of the history, physical exam, medical decision making, and the department course for this patient. I have also personally directed, reviewed, and agree with the discharge instructions and disposition. Disposition - Clinical Impression Clinical Impression: Polysubstance abuse - Patient ED Disposition Is Patient to be Admitted: Transfer of Care (Signed out to Dr. Lechuga pending sobriety) - Disposition Referrals: [facility] [Outside] Disposition Time: 06:00 Condition: STABLE Instructions: Polysubstance Abuse (ED) Forms: [employer] (Afghan)
[2017-07-03 05:35] VITALS: BP 130/74; PULSE 80
--- NOTE | 2017-07-03 06:15 | ED PDOC ---
- ECG O2 Sat by Pulse Oximetry: 97 Medical Decision Making Medical Decision Making: Time: 06:00 Patient is signed over to me by JUAN MIGUEL Wood pending sobriety. Time: 07:00 Patient is signed out to Dr. Craft pending sobriety. Scribe Attestation: Documented by Emory Clark acting as a scribe for Jaime Lechuga MD. Scribe Attestation: All medical record entries made by the Scribe were at my direction and personally dictated by me. I have reviewed the chart and agree that the record accurately reflects my personal performance of the history, physical exam, medical decision making, and the department course for this patient. I have also personally directed, reviewed, and agree with the discharge instructions and disposition. Disposition - Clinical Impression Clinical Impression: Polysubstance abuse - Disposition Referrals: [facility] [Outside] Condition: STABLE Instructions: Polysubstance Abuse (ED) Forms: [employer] (Haitian)
--- NOTE | 2017-07-03 14:42 | CT ---
PROCEDURE: CT HEAD WITHOUT CONTRAST. HISTORY: trauma COMPARISON: None available. TECHNIQUE: Axial computed tomography images were obtained through the head/brain without intravenous contrast. Radiation dose: Total exam DLP = 853.82 mGy-cm. This CT exam was performed using one or more of the following dose reduction techniques: Automated exposure control, adjustment of the mA and/or kV according to patient size, and/or use of iterative reconstruction technique. FINDINGS: HEMORRHAGE: No intracranial hemorrhage. BRAIN: Normal harrington-white matter differentiation and density are appreciated throughout the cerebrum and cerebellum with the brainstem appearing unremarkable as well. There is no mass effect. There is no suspicious extra-axial fluid collection and the midline brain anatomy appears diffusely unremarkable. VENTRICLES: Unremarkable. No hydrocephalus. CALVARIUM: No destructive bony lesion or displaced fracture identified including through the skullbase. PARANASAL SINUSES: Unremarkable as visualized. No significant inflammatory changes. MASTOID AIR CELLS: Unremarkable as visualized. No inflammatory changes. OTHER FINDINGS: None. IMPRESSION: Unremarkable unenhanced CT of the Head.
== END 2017-07-03 06:49 | disposition home or self-care (01) ==
LOC: H.ER 21:56
DX: F12.90 Cannabis use, unspecified, uncomplicated (principal); E78.00 Pure hypercholesterolemia, unspecified; F31.9 Bipolar disorder, unspecified; R45.851 Suicidal ideations
CPT/HCPCS: 70450; 82948; 99284; G0480

== ENCOUNTER 2017-09-22 13:44 | Emergency (ER) | payer MEDICAID ==
[2017-09-22 13:44] VITALS: BMI 27.0
[2017-09-22 13:50] VITALS: RESP 16
--- NOTE | 2017-09-22 15:03 | ED PDOC ---
HPI: Psych/Substance Abuse Time Seen by Provider: 09/22/17 14:03 Chief Complaint (Nursing): Substance Abuse Chief Complaint (Provider): Substance Abuse ED Caveat: Intoxicated History Per: Patient History/Exam Limitations: no limitations Onset/Duration Of Symptoms: Unknown Current Symptoms Are (Timing): Still Present Additional History Per: EMS Additional Complaint(s): Leonides is a 37 y/o male brought to the ED via EMS for possible substance abuse. EMS reports no trauma and state they found him sleeping on the street. Patient says he takes prescription medications like percocet and xanax. He has no complaints at this time. Patient has been to this ED before for substance abuse. PMD: None Past Medical History Reviewed: Historical Data, Nursing Documentation, Vital Signs Vital Signs: Last Vital Signs Temp 97.4 F L 09/22/17 13:46 Pulse 84 09/22/17 13:46 Resp 16 09/22/17 13:46 BP 143/77 09/22/17 13:46 Pulse Ox 98 09/22/17 13:46 - Medical History PMH: Asthma, Bipolar Disorder, Depression, Hypercholesterolemia (pt says he no longer takes meds for this), Schizophrenia Denies: Diabetes, Hepatitis, HIV, HTN, Seizures, Sexually Transmitted Disease - Surgical History Surgical History: No Surg Hx - Family History Family History: States: Unknown Family Hx - Social History Current smoker - smoking cessation education provided: No Alcohol: None Drugs: Denies - Home Medications Home Medications: Ambulatory Orders Medication Instructions Recorded Albuterol HFA [Ventolin HFA 90 2 puff IH Q4 PRN #1 unit 06/29/16 mcg/actuation (8 g)] - Allergies Allergies/Adverse Reactions: Allergies Allergy/AdvReac Type Severity Reaction Status Date / Time No Known Allergies Allergy Verified 09/22/17 13:46 Review of Systems Review Of Systems: ROS cannot be obtained secondary to pt's inabilty to answer questions. Physical Exam - Reviewed Nursing Documentation Reviewed: Yes Vital Signs Reviewed: Yes - Physical Exam Appears: Positive for: No Acute Distress Skin: Positive for: Normal Color, Warm, Dry Eye Exam: Positive for: Normal appearance, EOMI, PERRL. Negative for: Nystagmus Cardiovascular/Chest: Positive for: Regular Rate, Rhythm. Negative for: Murmur Respiratory: Positive for: Normal Breath Sounds. Negative for: Respiratory Distress Gastrointestinal/Abdominal: Positive for: Normal Exam, Bowel Sounds, Soft. Negative for: Tenderness Back: Positive for: Normal Inspection. Negative for: L CVA Tenderness, R CVA Tenderness, Vertebral Tenderness Extremity: Positive for: Normal ROM. Negative for: Pedal Edema, Deformity Neurologic/Psych: Positive for: Gait (unsteady), Other (slurred speech) - ECG O2 Sat by Pulse Oximetry: 98 (RA) Pulse Ox Interpretation: Normal Medical Decision Making Medical Decision Making: Time: 14:31 Initial Impression: Substance Abuse; Differentials include alcohol intoxication Initial Plan: --Alcohol Serum --Urine Drug Screen --Ativan --1:1 Observation --Restraints Time: 17:00 --Patient transferred to Dr. Guerin pending sobriety and crisis evaluation. Scribe Attestation: Documented by Dawson Merrill, acting as a scribe for Dr. Desmond Aleman MD. Provider Scribe Attestation: All medical record entries made by the Scribe were at my direction and personally dictated by me. I have reviewed the chart and agree that the record accurately reflects my personal performance of the history, physical exam, medical decision making, and the department course for this patient. I have also personally directed, reviewed, and agree with the discharge instructions and disposition. Disposition - Clinical Impression Clinical Impression: PCP (phencyclidine) abuse - Patient ED Disposition Is Patient to be Admitted: Transfer of Care Counseled Patient/Family Regarding: Studies Performed, Diagnosis, Need For Followup - Disposition Referrals: [facility] [Outside] Disposition: Transfer of Care Disposition Time: 17:00 Condition: FAIR Instructions: Drug Abuse and Drug Addiction (DC) Patient Signed Over To: Preston Guerin
[2017-09-22 17:37] LABS: BARBITURATES, UR NEGATIVE (NEGATIVE); BENZODIAZEPINES, UR NEGATIVE (NEGATIVE); OPIATES, UR NEGATIVE (NEGATIVE); PHENCYCLIDINE, UR POSITIVE (NEGATIVE)
--- NOTE | 2017-09-22 18:52 | ED PDOC ---
- ECG O2 Sat by Pulse Oximetry: 98 (RA) - Progress Re-evaluation Time: 18:50 Condition: Improved (Awake alert oriented x 3 Denies SI/HI) Disposition - Clinical Impression Clinical Impression: PCP (phencyclidine) abuse - POA Present On Arrival: None - Disposition Referrals: [facility] [Outside] Disposition: Routine/Home Disposition Time: 18:52 Condition: FAIR Instructions: Drug Abuse and Drug Addiction (DC) Forms: [employer] (Armenian)
[2017-09-22 19:25] VITALS: BP 144/72; PULSE 88; TEMP 98
--- NOTE | 2017-09-23 07:39 | CARD ---
APPROVED REPORT EKG Measurement Heart [id number] <Conclusion> Normal sinus rhythm Normal ECG
[2017-09-23 17:07] VITALS: O2SAT 98
== END 2017-09-22 19:27 | disposition home or self-care (01) ==
LOC: H.ER 13:44
DX: F16.10 Hallucinogen abuse, uncomplicated (principal); Z86.59 Personal history of other mental and behavioral disorders; J45.909 Unspecified asthma, uncomplicated
CPT/HCPCS: 93005; 96372; 99282; G0480; J2060

== ENCOUNTER 2017-12-06 10:27 | Emergency (ER) | payer MEDICAID ==
[2017-12-06 10:35] VITALS: BMI 25.0
[2017-12-06 11:07] LABS: BASO # 0.1 K/uL (0.0-0.2); BASO % 0.8 % (0.0-2.0); EOS # 0.1 K/uL (0.0-0.7); EOS % 0.5 % (0.0-4.0); HEMOGLOBIN 14.2 g/dL (12.0-18.0); LYMPH # 2.8 K/uL (1.0-4.3); LYMPH % 23.3 % (20.0-40.0); MEAN CELL VOLUME 90.8 fl (80.0-94.0); MEAN CORPUSCULAR HEMOGLOBIN 31.3 pg (27.0-31.0); MEAN CORPUSCULAR HGB CONC 34.4 g/dL (33.0-37.0); MEAN PLATELET VOLUME 7.7 fl (7.2-11.7); MONO # 0.7 K/uL (0.0-0.8); MONO % 6.1 % (0.0-10.0); NEUT # 8.2 K/uL (1.8-7.0); NEUT % 69.3 % (50.0-75.0); RBC 4.53 Mil/uL (4.40-5.90); RED CELL DISTRIBUTION WIDTH 13.4 % (11.5-14.5); WHITE BLOOD COUNT 11.9 K/uL (4.8-10.8)
[2017-12-06 11:17] LABS: ALB/GLOB RATIO 1.3 (1.0-2.1); ALBUMIN 4.5 g/dL (3.5-5.0); ALT/SGPT 302 U/L (21-72); BLOOD UREA NITROGEN 12 mg/dl (9-20); CALCIUM 9.4 mg/dL (8.4-10.2); GFR AFRICAN-AMERICAN > 60; GFR NON-AFRICAN AMERICAN > 60
[2017-12-06 11:24] LABS: AST/SGOT 1081 U/L (17-59)
--- NOTE | 2017-12-06 16:11 | ED PDOC ---
HPI: Psych/Substance Abuse Time Seen by Provider: 12/06/17 10:43 Chief Complaint (Nursing): Substance Abuse Chief Complaint (Provider): EDP ED Caveat: Acuity of Condition, Uncooperative History Per: EMS, Other (HPD) Additional Complaint(s): Pt BIBA, agitated and aggressive. Past Medical History Reviewed: Nursing Documentation, Vital Signs Vital Signs: Last Vital Signs Temp 99 F 12/06/17 10:35 Pulse 56 L 12/06/17 10:35 Resp 17 12/06/17 10:35 BP 121/65 12/06/17 10:48 Pulse Ox 96 12/06/17 10:35 - Medical History PMH: Asthma, Bipolar Disorder, Depression, Hypercholesterolemia (pt says he no longer takes meds for this), Schizophrenia Denies: Diabetes, Hepatitis, HIV, HTN, Seizures, Sexually Transmitted Disease - Family History Family History: States: Unknown Family Hx - Home Medications Home Medications: Ambulatory Orders Medication Instructions Recorded Albuterol HFA [Ventolin HFA 90 2 puff IH Q4 PRN #1 unit 06/29/16 mcg/actuation (8 g)] - Allergies Allergies/Adverse Reactions: Allergies Allergy/AdvReac Type Severity Reaction Status Date / Time No Known Allergies Allergy Verified 12/06/17 10:35 Review of Systems Review Of Systems: ROS cannot be obtained secondary to pt's inabilty to answer questions. Physical Exam - Reviewed Nursing Documentation Reviewed: Yes Vital Signs Reviewed: Yes - Physical Exam Head Exam: Positive for: ATRAUMATIC, NORMAL INSPECTION Skin: Positive for: Normal Color, Warm, Dry Eye Exam: Positive for: Normal appearance, EOMI, PERRL Cardiovascular/Chest: Positive for: Regular Rate, Rhythm Respiratory: Positive for: Normal Breath Sounds Gastrointestinal/Abdominal: Positive for: Normal Exam, Bowel Sounds, Soft. Negative for: Tenderness, Distended Neurologic/Psych: Positive for: Alert, joinery patternmaker II-XII, Other (Moving all extremities ). Negative for: Facial Droop - Laboratory Results Result Diagrams: 12/06/17 10:52 12/06/17 10:52 - ECG O2 Sat by Pulse Oximetry: 96 (RA) Pulse Ox Interpretation: Normal Medical Decision Making Medical Decision Making: Time: 1038 Initial Plan: --Alcohol serum --CMP --Drug Screen --Crisis Evaluation --ED Urine Dipstick --CBC w/ Differential --Ativan 2mg --Haldol 5mg --Restraint: Violent or harm to self/other as ordered --Reevaluation Patient is arousable to verbal stimuli and sleepy but oriented x3. States he is under stress because his mom and was sad for mother's day. He denies alcohol but had marijuana possibly. Denies nausea, vomiting or abdominal pain. His abdomen is nontender and nondistended. Scribe Attestation: Documented by Shira Rollins, acting as a scribe for Grisel Benites MD Provider Scribe Attestation: All medical record entries made by the Scribe were at my direction and personally dictated by me. I have reviewed the chart and agree that the record accurately reflects my personal performance of the history, physical exam, medical decision making, and the department course for this patient. I have also personally directed, reviewed, and agree with the discharge instructions and disposition. Disposition - Disposition Forms: [employer] (Pakistani)
--- NOTE | 2017-12-06 17:30 | ED PDOC ---
- Laboratory Results Result Diagrams: 12/06/17 10:52 12/06/17 10:52 - ECG O2 Sat by Pulse Oximetry: 96 (RA) Pulse Ox Interpretation: Normal Medical Decision Making Medical Decision Making: Time: [address] Benites. Patient with substance abuse and depression pending crisis evaluation. Time: 1944 Evaluated by cafe worker and patient is stable for discharge. Alert and awake oriented x 3. No signs of withdrawal. Steady gait. Clinical Impression: Phencyclidine abuse, polysubstance abuse Upon provider evaluation patient is medically stable, and requires no further treatment in the ED at this time. Patient will be discharged. Counseling was provided and all questions were answered regarding diagnosis and need for follow up with PMD. There is agreement to discharge plan. Return if symptoms persist or worsen. Scribe Attestation: Documented by Shira Rollins, acting as a scribe for Angelica Mosqueda MD Provider Scribe Attestation: All medical record entries made by the Scribe were at my direction and personally dictated by me. I have reviewed the chart and agree that the record accurately reflects my personal performance of the history, physical exam, medical decision making, and the department course for this patient. I have also personally directed, reviewed, and agree with the discharge instructions and disposition. Disposition - Clinical Impression Clinical Impression: PCP (phencyclidine) abuse, Polysubstance abuse - POA Present On Arrival: None - Disposition Referrals: [facility] [Outside] [facility] [Outside] Disposition: Routine/Home Disposition Time: 19:45 Condition: IMPROVED Instructions: Drug Abuse and Drug Addiction (DC) Forms: [employer] (Welsh)
[2017-12-06 18:47] LABS: BARBITURATES, UR NEGATIVE (NEGATIVE); BENZODIAZEPINES, UR NEGATIVE (NEGATIVE); OPIATES, UR NEGATIVE (NEGATIVE); PHENCYCLIDINE, UR POSITIVE (NEGATIVE)
[2017-12-06 19:54] VITALS: BP 113/55; PULSE 74; RESP 18; TEMP 97.8
[2017-12-06 20:28] VITALS: O2SAT 96
== END 2017-12-06 20:25 | disposition home or self-care (01) ==
LOC: H.ER 10:27
DX: F16.10 Hallucinogen abuse, uncomplicated (principal); E78.00 Pure hypercholesterolemia, unspecified; F31.9 Bipolar disorder, unspecified; J45.909 Unspecified asthma, uncomplicated
CPT/HCPCS: 80053; 85025; 96372; 99285; G0480; J1630; J2060